=== PATIENT | male | born 1930 | race Hispanic/Latino ===

== ENCOUNTER 2019-03-07 06:55 | Day surgery (SDC) | payer MEDICARE ==
[2019-03-04 14:43] LABS: BASOPHILS % (AUTO) 1.3 % (0.0-5.0); EOSINOPHILS % (AUTO) 1.8 % (0.0-8.0); HEMATOCRIT 44.6 % (42-54); LYMPHOCYTES % (AUTO) 9.3 % (21.0-51.0); MEAN CORPUSCULAR HEMOGLOBIN 30.5 pg (27.0-33.0); MEAN CORPUSCULAR HGB CONC 34.2 g/dL (32.0-36.0); MEAN CORPUSCULAR VOLUME 89.1 fL (79-99); NEUTROPHILS % (AUTO) 77.6 % (40.0-77.0); PLATELET COUNT (AUTO) 169 K/uL (130-400); RED CELL DISTRIBUTION WIDTH 13.5 % (11.0-15.5); WHITE BLOOD COUNT (AUTO) 7.5 K/uL (4.8-10.8)
[2019-03-04 14:51] VITALS: BP 116/69
[2019-03-04 14:57] LABS: INR 0.97 (0.85-1.15); PROTHROMBIN TIME 10.2 SEC (9.6-11.6)
[2019-03-04 15:00] LABS: CREATININE 1.4 mg/dL (0.5-1.5); POTASSIUM 4.4 mmol/L (3.5-5.1)
[2019-03-04 16:02] LABS: APPEARANCE,URINE CLOUDY (CLEAR); BILIRUBIN,URINE SMALL (NEGATIVE); COLOR,URINE YELLOW (YELLOW); GLUCOSE, URINE (UA) NEGATIVE (NEGATIVE); KETONES,URINE NEGATIVE (NEGATIVE); LEUKOCYTE ESTERASE ,URINE LARGE (NEGATIVE); NITRATE,URINE NEGATIVE (NEGATIVE); OCCULT BLOOD,URINE LARGE (NEGATIVE); PH,URINE 7.5 (5.0-8.0); PROTEIN,URINE 30 mg/dL (NEGATIVE)
--- NOTE | 2019-03-04 16:04 | NUR ---
PT HAS ABNORMAL EKG, HISTORY OF PACEMAKER, WHICH IS PACING AT 64 BPM. 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 DR. DURAN VIEWED EKG AND STATED OK FOR PT TO PROCEED WITH PLANNED GREENLIGHT LASER PROCEDURE. NO FURTHER ORDERS GIVEN.
[2019-03-04 17:21] LABS: BACTERIA,URINE Moderate /HPF (None Seen)
[2019-03-04 17:22] LABS: AMORPHOUS SEDIMENT,UR Rare /LPF (None Seen); CALCIUM OXALATE CRYSTALS,UR Rare /LPF (None Seen); SQUAMOUS EPITHELIAL CELL,UR Rare /HPF (0-2)
--- NOTE | 2019-03-06 09:41 | NUR ---
GEOFF C/S FAXED C/S REPORT TO DARLIN AT DR. JENKINS OFFICE.
[~2019-03-07] VITALS: Ht 170.2 cm; Wt 75.0 kg
[2019-03-07] VITALS (12 sets, daily range): BP systolic 92–125; BP diastolic 60–71
[~2019-03-07 06:55] MED LIST: AMIO400T PO; ASPI-555 PO; CEFTRIAXONE SODIUM 1 GM IVP SCH; FENO145T37 PO; GENTAMICIN SULFATE 320 MG in SODIUM CHLORIDE 0.9% 100 ML IV SCH; LEVO500T2 PO; METF-446 PO; METO50TA18 PO; TAMS-1 PO
[2019-03-07] MEDS ORDERED: SODIUM CHLORIDE 0.9% 1000ML 1,000 ML IV ONE (07:54)
[2019-03-07] MEDS ORDERED: ONDANSETRON HCL 4 MG/2 ML VIAL ONE (08:04)
[2019-03-07] MEDS ORDERED: PROPOFOL 10 MG/ML 20ML VIAL IV ONE (08:04)
[2019-03-07] MEDS ORDERED: GLYCOPYRROLATE 1 MG/5 ML SYRINGE ONE (08:04)
[2019-03-07] MEDS ORDERED: MIDAZOLAM HCL 1 MG/ML 2ML VIAL ONE (08:04)
[2019-03-07] MEDS ORDERED: DEXAMETHASONE SOD PHOSPHATE 10MG/ML 1ML VIAL ONE ×2 (08:04→09:44)
[2019-03-07] MEDS ORDERED: LIDOCAINE PF 2% 5ML ABBOJECT ONE (08:04)
[2019-03-07] MEDS ORDERED: SUCCINYLCHOLINE 200MG/10ML SYR ONE (08:04)
[2019-03-07] MEDS ORDERED: ROCURONIUM 10MG/1ML SYR 10 MG/ML ML ONE (08:05)
[2019-03-07] MEDS ORDERED: NEOSTIGMINE 5MG/5ML SYR IV ONE (08:05)
[2019-03-07] MEDS ORDERED: FENTANYL CITRATE PF 50 MCG/1 ML 2ML VIAL ONE ×2 (08:06→09:51)
[2019-03-07] MEDS ORDERED: EPHEDRINE SULFATE 50 MG/ML AMPULE ONE (08:08)
[2019-03-07] MEDS ORDERED: ZOSYN 3.375GM+NS 50ML 50 ML IV ONE (08:43)
[2019-03-07] MEDS ORDERED: ZOSYN 3.375GM+NS 50ML 50 ML IV SCH (10:00)
== END 2019-03-07 12:10 | disposition home or self-care (01) ==
LOC: DAH 06:55
PROVIDERS: ATTEND Urology
DX: N40.1 Benign prostatic hyperplasia with lower urinary tract symptoms (principal); R33.8 Other retention of urine; Z95.0 Presence of cardiac pacemaker; E11.9 Type 2 diabetes mellitus without complications; Z79.01 Long term (current) use of anticoagulants
CPT/HCPCS: 36415; 52648; 71045; 80048; 81001; 82948 ×2; 85025; 85610; 87077; 87088; 87186; 93005; 96374; A4354; A4358; A4600; J0330; J1100 ×2; J1580; J2001; J2250; J2405; J2543; J2704; J2710; J3010 ×2; J3490 ×2; J7030 ×2; J0696